=== PATIENT | female | born 1950 | race African-American/Black ===

== ENCOUNTER 2016-10-02 09:36 | Emergency (ER) | payer BC ==
[~2016-10-02 09:36] MED LIST: KLOR-CON M2020 MEQ PO; LEVOTHYROXIN100 MCG PO; LEVOTHYROXIN112 MCG PO; MICROZIDE PO; NORV5 PO; VITAMIN D PO; VITD PO
== END 2016-10-02 10:00 | disposition home or self-care (01) ==
LOC: ER 09:36
DX: M54.41 Lumbago with sciatica, right side (principal); I10 Essential (primary) hypertension; Z79.899 Other long term (current) drug therapy
CPT/HCPCS: 96374; 99283; A9270-GY